=== PATIENT | male | born 1950 | race Two or more races ===

== ENCOUNTER 2022-07-05 16:35 | Emergency (ER) | payer OTHER ==
[~2022-07-05] VITALS: Ht 165.1 cm; Wt 70.3 kg
[2022-07-05 17:19] VITALS: BP 146/90
[2022-07-05] MEDS ORDERED: PROM118S5 PO ×2 (18:18→18:20)
[2022-07-05] MEDS ORDERED: ACET-9882 PO ×2 (18:18→18:20)
[2022-07-05] MEDS ORDERED: BENZ-300 PO ×2 (18:18→18:20)
[2022-07-05 19:00] VITALS: BP 144/80
--- NOTE | 2022-07-05 19:01 | NUR ---
Patient discharged with v/s stable. Written and verbal after care instructions given and explained. Patient alert, oriented and verbalized understanding of instructions. Ambulatory with steady gait. All questions addressed prior to discharge. ID band removed. Patient advised to follow up with PMD. Rx of tylenol, robitussin given. Patient educated on indication of medication including possible reaction and side effects. Opportunity to ask questions provided and answered.
== END 2022-07-05 19:01 | disposition home or self-care (01) ==
LOC: MED 16:35
DX: U07.1 COVID-19 (principal)
CPT/HCPCS: 99282